=== PATIENT | male | born 1965 | race African-American/Black ===

== ENCOUNTER 2017-03-01 19:14 | Inpatient (IN) | payer MEDICAID ==
[~2017-03-01] VITALS: Ht 172.7 cm; Wt 72.1 kg
[2017-03-01] MEDS ORDERED: NALOXONE HCL 0.4 MG/ML 1ML VIAL IV PRN (19:30)
[2017-03-01] MEDS ORDERED: SODIUM CHLORIDE 0.9% 1,000 ML IV ONE ×2 (19:30→22:31)
[2017-03-01] MEDS ORDERED: LORAZEPAM 2MG/ML CPJ IV STA ×2 (19:30→22:31)
[2017-03-01] MEDS ORDERED: DIPHENHYDRAMINE 50MG/ML VIAL IM STA (19:35)
[2017-03-01] MEDS ORDERED: LORAZEPAM 2MG/ML CPJ IM ONE (19:45)
[2017-03-01 20:13] LABS: HEMATOCRIT. 40.9 % (42.0-52.0); HEMOGLOBIN. 13.5 g/dL (14.0-18.0); MEAN CORPUSCULAR HEMOGLOBIN 31.1 pg (28.0-32.0); MEAN CORPUSCULAR VOLUME 94.3 fL (80.0-94.0); MEAN PLATELET VOLUME 9.7 fl (7.4-10.4); PLATELET 180 x1000/uL (130-400); RED BLOOD CELL COUNT 4.34 mill/uL (4.7-6.1); RED CELL DISTRIBUTION WIDTH 14.1 % (11.6-14.6); WHITE BLOOD COUNT 35.2 x1000/uL (4.5-11.0)
[2017-03-01 20:14] LABS: DIFFERENTIAL COMMENT 1
[2017-03-01 20:17] LABS: INR 1.7; PROTHROMBIN TIME 17.8 sec
[2017-03-01 20:22] LABS: AMMONIA 54 uMol/L (<32); INDEX HEMOLYSI 1 (1-3)
[2017-03-01 20:24] LABS: ALANINE AMINOTRANSFERASE 23 IU/L (13-61); ALBUMIN 2.4 g/dL (3.4-5.0); ANION GAP 27; CALCIUM 9.1 mg/dL (8.5-10.1); CARBON DIOXIDE 14 mEq/L (21-32); CHLORIDE 95 mEq/L (98-107); ETHANOL BLOOD < 10 mg/dL; INDEX HEMOLYSI 2 (1-3); INDEX ICTERIC 2 (1-4); INDEX LIPEMIC 1 (1-3); LIPASE 33 IU/L (73-393); eGFR > 60 mL/min (>60)
[2017-03-01 20:27] LABS: CREATINE KINASE 86 IU/L (39-308); TROPONIN I 0.04 ng/mL (0.00-0.04)
[2017-03-01] MEDS ORDERED: HALOPERIDOL LACTATE 5MG/ML VIAL IM ONE (20:30)
[2017-03-01] MEDS ORDERED: DEXTROSE 50% WATER 50ML SYRINGE IV ONE (20:30)
[2017-03-01 20:33] LABS: THYROID STIMULATING HORMONE 0.62 uIU/mL (0.36-3.74); UREA NITROGEN BLOOD 4 mg/dL (7-21)
[2017-03-01 20:56] LABS: CLARITY URINE CLEAR (CLEAR); COLOR URINE ORANGE (YELLOW); GLUCOSE URINE NEGATIVE (NEGATIVE); KETONES URINE TRACE (NEGATIVE); LEUKOCYTE ESTERASE URINE 1+ (NEGATIVE); NITRITE URINE POSITIVE (NEGATIVE); OCCULT BLOOD URINE 1+ (NEGATIVE); PH URINE 5.5 (4.5-8.0); PROTEIN URINE 2+ (NEGATIVE); SPECIFIC GRAVITY URINE 1.023 (1.005-1.030)
[2017-03-01 20:59] LABS: PLATELET ESTIMATE NORMAL
[2017-03-01 21:06] LABS: *AMPHETAMINES SCREEN URINE NEGATIVE (NEGATIVE); *BARBITURATES SCREEN URINE NEGATIVE (NEGATIVE); *BENZODIAZEPINES SCREEN URINE NEGATIVE (NEGATIVE); *COCAINE SCREEN URINE NEGATIVE (NEGATIVE); CANNABINOID URINE SCREEN PRESUMTIVE POSITIVE (NEGATIVE); ECSTASY MDMA SCREEN URINE NEGATIVE (NEGATIVE); METHADONE URINE SCREEN NEGATIVE (NEGATIVE); OPIATES URINE SCREEN NEGATIVE (NEGATIVE); PHENCYCLIDINE URINE SCREEN NEGATIVE (NEGATIVE)
[2017-03-01] MEDS ORDERED: SODIUM CHLORIDE 0.9% 1000ML BAG (SEPSIS BOLUS) IV ONE ×2 (21:15→23:45)
[2017-03-01 22:22] LABS: MUCUS URINE 1+ /lpf (NONE/TRACE); SQUAMOUS EPITHELIAL CELL URINE FEW /lpf (RARE/1+)
[2017-03-01 22:24] LABS: BACTERIA URINE TRACE; HYALINE CASTS URINE 0-5 /lpf
[2017-03-01] MEDS ORDERED: MIDAZOLAM HCL 2 MG/2 ML VIAL IV ONE (22:45)
[2017-03-01] MEDS ORDERED: ETOMIDATE 2MG/ML 10ML VIAL IV ONE (22:45)
[2017-03-01] MEDS ORDERED: MIDAZOLAM HCL 50 MG in DEXTROSE 5% WATER 40 ML IV ONE (22:45)
[2017-03-01] MEDS ORDERED: SUCCINYLCHOLINE CHLORIDE 200MG/10ML VIAL IV ONE (22:45)
[2017-03-01] MEDS ORDERED: LEVOFLOXACIN 750MG PREMIX 150 ML IV ONE (23:45)
[2017-03-01] MEDS ORDERED: METRONIDAZOLE 500 MG PREMIX 100 ML IV ONE (23:45)
[2017-03-01 23:55] LABS: BG BASE EXCESS -13.5 mmol/L (-2.0-2.0); BG CARBOXYHEMOGLOBIN 0.3 % (0.5-1.5); BG DEOXYHEMOGLOBIN 1.3 % (0.0-5.0); BG FRACTION INSPIRED OXYGEN 50; BG HCO3 ACT 9.8 mmol/L (22.0-26.0); BG METHEMOGLOBIN 0.4 % (0.0-1.5); BG OXYGEN SATURATION 98.7 % (92.0-98.5); BG PCO2 18.5 mmHg (35.0-45.0); BG PH 7.343 (7.350-7.450); BG PO2 157.2 mmHg (75.0-100.0); BG SAMPLE SITE RIGHT BRACHIAL; BG TIDAL VOLUME(mL) 450 mL; BG TOTAL HEMOGLOBIN 12.6 g/dL (12.0-18.0); BG VENT MODE VENT - A/C; BG VENT RATE 14 set
[2017-03-02] VITALS (66 sets, daily range): BP systolic 73–127; BP diastolic 29–82
[2017-03-02] MEDS ORDERED: KCL 20MEQ/100ML PREMIX 100 ML IV ONE (00:30)
[2017-03-02] MEDS ORDERED: PANTOPRAZOLE SODIUM 40 MG/VIAL IV STA (00:54)
[2017-03-02] MEDS ORDERED: OCTREOTIDE ACETATE 50 MCG/ML 1ML IV STA (00:54)
[2017-03-02] MEDS ORDERED: ETOMIDATE 2MG/ML 10ML VIAL IV ONE (01:00)
[2017-03-02] MEDS ORDERED: SUCCINYLCHOLINE CHLORIDE 200MG/10ML VIAL IV ONE (01:00)
[2017-03-02] MEDS ORDERED: ACETAMINOPHEN 650MG SUPP PR ONE (01:00)
[2017-03-02] MEDS ORDERED: SODIUM CHLORIDE 0.9% 1000ML BAG (SEPSIS BOLUS) IV ONE (01:00)
[2017-03-02] MEDS ORDERED: MIDAZOLAM HCL 50 MG in DEXTROSE 5% WATER 40 ML IV ONE (02:00)
[2017-03-02] MEDS ORDERED: VANCOMYCIN 1 G PREMIX 200 ML IV SCH (02:00)
[2017-03-02 02:57] LABS: CHLORIDE 109 mEq/L (98-107); INDEX HEMOLYSI 1 (1-3); INDEX ICTERIC 2 (1-4); INDEX LIPEMIC 1 (1-3)
[2017-03-02 03:04] LABS: ANION GAP 20; CARBON DIOXIDE 12 mEq/L (21-32); eGFR > 60 mL/min (>60)
[2017-03-02 03:09] LABS: UREA NITROGEN BLOOD 3 mg/dL (7-21)
[2017-03-02] MEDS ORDERED: POTASSIUM CHLORIDE INJ 40 MEQ in DEXT 5% WATER 500 ML IV NR (04:15)
[2017-03-02] MEDS ORDERED: DEXT 5%/0.9% NACL 1,000 ML IV SCH (04:15)
[2017-03-02 06:31] LABS: HEMATOCRIT. 32.4 % (42.0-52.0); HEMOGLOBIN. 10.9 g/dL (14.0-18.0); MEAN CORPUSCULAR HEMOGLOBIN 31.7 pg (28.0-32.0); MEAN CORPUSCULAR HGB CONC 33.6 g/dL (31.0-37.0); MEAN CORPUSCULAR VOLUME 94.3 fL (80.0-94.0); MEAN PLATELET VOLUME 9.6 fl (7.4-10.4); PLATELET 67 x1000/uL (130-400); RED BLOOD CELL COUNT 3.44 mill/uL (4.7-6.1); RED CELL DISTRIBUTION WIDTH 13.9 % (11.6-14.6); WHITE BLOOD COUNT 17.8 x1000/uL (4.5-11.0)
[2017-03-02 06:35] LABS: DIFFERENTIAL COMMENT 1
[2017-03-02 06:42] LABS: ALANINE AMINOTRANSFERASE 34 IU/L (13-61); ALBUMIN 1.5 g/dL (3.4-5.0); ANION GAP 18; CALCIUM 7.1 mg/dL (8.5-10.1); CARBON DIOXIDE 13 mEq/L (21-32); CHLORIDE 111 mEq/L (98-107); INDEX HEMOLYSI 1 (1-3); INDEX ICTERIC 2 (1-4); INDEX LIPEMIC 1 (1-3); eGFR > 60 mL/min (>60)
[2017-03-02 06:45] LABS: UREA NITROGEN BLOOD 4 mg/dL (7-21)
[2017-03-02 06:51] LABS: PLATELET ESTIMATE DECREASED
[2017-03-02 07:55] LABS: LACTIC ACID 5.6 mmol/L (0.4-2.0)
[2017-03-02] MEDS ORDERED: CLONIDINE 0.1MG TABLET PO PRN (08:45)
[2017-03-02] MEDS ORDERED: MAGNESIUM/ALUMINUM HYDROXIDE/SIMETHICONE 30ML UDC PO PRN (08:45)
[2017-03-02] MEDS ORDERED: ACETAMINOPHEN 650MG SUPP PR PRN (08:45)
[2017-03-02] MEDS ORDERED: ONDANSETRON HCL 4MG/2ML VIAL IV PRN (08:45)
[2017-03-02] MEDS ORDERED: ACETAMINOPHEN 650MG/20.3ML UDC GT PRN (08:45)
[2017-03-02] MEDS ORDERED: HYDROCODONE/ACETAMINOPHEN 5/325MG TABLET PO PRN (08:45)
[2017-03-02] MEDS ORDERED: ACETAMINOPHEN 325MG TABLET PO PRN (08:45)
[2017-03-02] MEDS ORDERED: ENOXAPARIN 40MG/0.4ML SYR SUBCUT SCH (08:45)
[2017-03-02] MEDS ORDERED: NA PHOS,M-B/NA PHOS,DI-BA ENEMA 118ML PR PRN (08:45)
[2017-03-02] MEDS ORDERED: DIPHENHYDRAMINE 50MG/ML VIAL IV PRN (08:45)
[2017-03-02] MEDS ORDERED: GUAIFENESIN 200MG/10ML SUGAR FREE UDC PO PRN (08:45)
[2017-03-02] MEDS ORDERED: POTASSIUM CHLORIDE INJ 40 MEQ in DEXT 5% WATER 500 ML IV ONE (09:00)
[2017-03-02] MEDS ORDERED: DOCUSATE SODIUM 100MG CAPSULE PO PRN (09:00)
[2017-03-02] MEDS ORDERED: IPRATROPIUM/ALBUTEROL 0.5-3(2.5)MG/3ML NEB INH PRN (09:00)
[2017-03-02] MEDS ORDERED: NOREPINEPHRINE 32 MG in DEXT 5% WATER 468 ML IV PRN (09:30)
[2017-03-02] MEDS ORDERED: NOREPINEPHRINE 16MG in DEXT 5% WATER 250ML (QUADRUPLE CONC) IV PRN (09:30)
[2017-03-02] MEDS ORDERED: SODIUM BICARBONATE 50 MEQ in DEXTROSE 5% WATER 1,000 ML IV SCH ×2 (09:30→11:00)
[2017-03-02 09:37] LABS: BG BASE EXCESS -11.2 mmol/L (-2.0-2.0); BG CARBOXYHEMOGLOBIN 0.1 % (0.5-1.5); BG FRACTION INSPIRED OXYGEN 50; BG HCO3 ACT 10.7 mmol/L (22.0-26.0); BG METHEMOGLOBIN 0.3 % (0.0-1.5); BG OXYHEMOGLOBIN 97.6 % (94.0-97.0); BG PCO2 16.7 mmHg (35.0-45.0); BG PH 7.425 (7.350-7.450); BG PO2 110.6 mmHg (75.0-100.0); BG SAMPLE SITE RIGHT BRACHIAL; BG TIDAL VOLUME(mL) 450 mL; BG TOTAL HEMOGLOBIN 12.1 g/dL (12.0-18.0); BG VENT MODE VENT - A/C; BG VENT RATE 14 set
[2017-03-02] MEDS ORDERED: PIPERACILLIN/TAZ 3.375G PREMIX 50 ML IV SCH (10:00)
[2017-03-02] MEDS ORDERED: PANTOPRAZOLE 80 MG in SODIUM CHLORIDE 0.9% 100 ML IV SCH (10:00)
[2017-03-02] MEDS: METHYLPREDNISOLONE SOD SUCC 125 MG/2 ML VIAL IV SCH ×2 (10:06→17:08)
[2017-03-02] MEDS: PANTOPRAZOLE 80 MG in SODIUM CHLORIDE 0.9% 100 ML IV SCH ×2 (10:06→20:44)
[2017-03-02] MEDS: PIPERACILLIN/TAZ 3.375G PREMIX 50 ML IV SCH ×2 (10:07→17:09)
[2017-03-02] MEDS ORDERED: SODIUM BICARBONATE 8.4% 1 MEQ/ML 50ML SYR IV NR (10:22)
[2017-03-02] MEDS ORDERED: VANCOMYCIN 750 MG PREMIX 150 ML IV SCH (10:30)
[2017-03-02] MEDS: PROPOFOL 10MG/ML 100ML 100 ML IV PRN ×2 (12:20→17:51)
[2017-03-02] MEDS: VANCOMYCIN 750 MG PREMIX 150 ML IV SCH ×2 (12:26→17:51)
[2017-03-02] MEDS ORDERED: SODIUM CHLORIDE 0.9% INJ 3ML FLUSH IVF SCH (14:00)
[2017-03-02 14:23] LABS: BG BASE EXCESS -3.7 mmol/L (-2.0-2.0); BG CARBOXYHEMOGLOBIN 0.1 % (0.5-1.5); BG DEOXYHEMOGLOBIN 0.8 % (0.0-5.0); BG FRACTION INSPIRED OXYGEN 50; BG HCO3 ACT 16.9 mmol/L (22.0-26.0); BG METHEMOGLOBIN 0.2 % (0.0-1.5); BG OXYGEN SATURATION 99.2 % (92.0-98.5); BG OXYHEMOGLOBIN 98.9 % (94.0-97.0); BG PCO2 20.7 mmHg (35.0-45.0); BG PH 7.529 (7.350-7.450); BG PO2 193.7 mmHg (75.0-100.0); BG SAMPLE SITE RIGHT RADIAL; BG TIDAL VOLUME(mL) 500 mL; BG TOTAL HEMOGLOBIN 12.9 g/dL (12.0-18.0); BG VENT MODE VENT - A/C; BG VENT RATE 20 set
[2017-03-02] MEDS ORDERED: SODIUM BICARBONATE 100 MEQ in SODIUM CHLORIDE 0.45% 1,000 ML IV SCH (14:30)
[2017-03-02] MEDS: SODIUM CHLORIDE 0.45% 1,000 ML IV SCH (15:51)
[2017-03-02] MEDS: NOREPINEPHRINE 16 MG in SODIUM CHLORIDE 0.9% 234 ML IV PRN (15:52)
[2017-03-02 16:03] LABS: HEMATOCRIT 38.2 % (42.0-52.0); HEMOGLOBIN 12.9 g/dL (14.0-18.0)
[2017-03-02 16:27] LABS: *AMPHETAMINES SCREEN URINE NEGATIVE (NEGATIVE); *BARBITURATES SCREEN URINE NEGATIVE (NEGATIVE); *BENZODIAZEPINES SCREEN URINE PRESUMTIVE POSITIVE (NEGATIVE); *COCAINE SCREEN URINE NEGATIVE (NEGATIVE); CANNABINOID URINE SCREEN PRESUMTIVE POSITIVE (NEGATIVE); ECSTASY MDMA SCREEN URINE NEGATIVE (NEGATIVE); METHADONE URINE SCREEN NEGATIVE (NEGATIVE); OPIATES URINE SCREEN PRESUMTIVE POSITIVE (NEGATIVE); PHENCYCLIDINE URINE SCREEN NEGATIVE (NEGATIVE)
[2017-03-02 19:08] LABS: HEMATOCRIT 39.2 % (42.0-52.0); HEMOGLOBIN 13.2 g/dL (14.0-18.0)
[2017-03-03] VITALS (95 sets, daily range): BP systolic 83–138; BP diastolic 20–85
[2017-03-03] MEDS: PROPOFOL 10MG/ML 100ML 100 ML IV PRN ×2 (00:20→08:36)
[2017-03-03 01:31] LABS: HEMATOCRIT 39.8 % (42.0-52.0); HEMOGLOBIN 13.3 g/dL (14.0-18.0)
[2017-03-03] MEDS: VANCOMYCIN 750 MG PREMIX 150 ML IV SCH ×3 (02:01→17:47)
[2017-03-03] MEDS: PIPERACILLIN/TAZ 3.375G PREMIX 50 ML IV SCH ×2 (02:01→09:18)
[2017-03-03] MEDS: METHYLPREDNISOLONE SOD SUCC 125 MG/2 ML VIAL IV SCH ×2 (02:20→09:18)
[2017-03-03 05:22] LABS: HEMATOCRIT 38.2 % (42.0-52.0); HEMOGLOBIN 12.7 g/dL (14.0-18.0)
[2017-03-03] MEDS: PANTOPRAZOLE 80 MG in SODIUM CHLORIDE 0.9% 100 ML IV SCH ×2 (05:46→17:47)
[2017-03-03] MEDS: SODIUM CHLORIDE 0.45% 1,000 ML IV SCH (08:14)
[2017-03-03] MEDS: NOREPINEPHRINE 16 MG in SODIUM CHLORIDE 0.9% 234 ML IV PRN (08:24)
[2017-03-03 09:02] LABS: BG BASE EXCESS -5.1 mmol/L (-2.0-2.0); BG CARBOXYHEMOGLOBIN 0.2 % (0.5-1.5); BG DEOXYHEMOGLOBIN 0.8 % (0.0-5.0); BG FRACTION INSPIRED OXYGEN 40; BG HCO3 ACT 15.2 mmol/L (22.0-26.0); BG METHEMOGLOBIN 0.3 % (0.0-1.5); BG OXYGEN SATURATION 99.2 % (92.0-98.5); BG OXYHEMOGLOBIN 98.7 % (94.0-97.0); BG PCO2 18.6 mmHg (35.0-45.0); BG PO2 163.9 mmHg (75.0-100.0); BG SAMPLE SITE RIGHT RADIAL; BG TIDAL VOLUME(mL) 550 mL; BG TOTAL HEMOGLOBIN 12.7 g/dL (12.0-18.0); BG VENT MODE VENT - A/C; BG VENT RATE 16 set
[2017-03-03 09:26] LABS: BASOPHILS % 0.3 % (0.0-2.0); EOSINOPHILS % 2.8 % (0.0-5.0); HEMATOCRIT. 34.3 % (42.0-52.0); HEMOGLOBIN. 11.5 g/dL (14.0-18.0); LYMPHOCYTES % 7.6 % (20.0-50.0); MEAN CORPUSCULAR HGB CONC 33.4 g/dL (31.0-37.0); MEAN PLATELET VOLUME 11.1 fl (7.4-10.4); MONOCYTES % 5.4 % (2.0-8.0); NEUTROPHILS % 83.9 % (40.0-76.0); RED BLOOD CELL COUNT 3.69 mill/uL (4.7-6.1); RED CELL DISTRIBUTION WIDTH 13.9 % (11.6-14.6); WHITE BLOOD COUNT 21.2 x1000/uL (4.5-11.0)
[2017-03-03 09:32] LABS: ADD RBC MORPHOLOGY YES; ALANINE AMINOTRANSFERASE 94 IU/L (13-61); ALBUMIN 1.2 g/dL (3.4-5.0); ANION GAP 19; CALCIUM 7.1 mg/dL (8.5-10.1); CARBON DIOXIDE 13 mEq/L (21-32); CHLORIDE 107 mEq/L (98-107); DIFFERENTIAL COMMENT 1; INDEX HEMOLYSI 2 (1-3); INDEX ICTERIC 2 (1-4); INDEX LIPEMIC 1 (1-3); PLATELET 40 x1000/uL (130-400); UREA NITROGEN BLOOD 13 mg/dL (7-21); eGFR > 60 mL/min (>60)
[2017-03-03 09:52] LABS: LACTIC ACID 5.7 mmol/L (0.4-2.0)
[2017-03-03] MEDS ORDERED: IOHEXOL-350 100 ML BOTTLE ONE (11:57)
[2017-03-03] MEDS ORDERED: SODIUM CHLORIDE 0.9% 10ML VIAL ONE (11:57)
[2017-03-03] MEDS ORDERED: POTASSIUM CHLORIDE 20MEQ TABLET SR PO NR (12:15)
[2017-03-03 12:27] LABS: HEMATOCRIT 35.2 % (42.0-52.0); HEMOGLOBIN 11.7 g/dL (14.0-18.0)
[2017-03-03 12:32] LABS: PLATELET ESTIMATE MARKEDLY DECREASED
[2017-03-03 12:58] LABS: AMMONIA 67 uMol/L (<32); INDEX HEMOLYSI 2 (1-3)
[2017-03-03] MEDS ORDERED: POTASSIUM CHLORIDE INJ 40 MEQ in DEXT 5% WATER 250 ML IV ONE (13:30)
[2017-03-03] MEDS ORDERED: POTASSIUM CHLORIDE INJ 40 MEQ in DEXT 5% WATER 250 ML IV NR (13:30)
[2017-03-03] MEDS ORDERED: KCL 20MEQ/100ML PREMIX 100 ML IV NR (13:30)
[2017-03-03] MEDS ORDERED: MEROPENEM PER PHARMACY XX SCH (13:45)
[2017-03-03] MEDS: DEXT 5%/0.45% NACL KCL 10MEQ/L 1,000 ML IV SCH (14:07)
[2017-03-03] MEDS: LACTULOSE 300 ML in WATER FOR INJECTION,STERILE 700 ML PR SCH (15:58)
[2017-03-03] MEDS: MEROPENEM 1,000 MG in SODIUM CHLORIDE 0.9% 50 ML IV SCH (15:59)
[2017-03-03] MEDS: IPRATROPIUM/ALBUTEROL 0.5-3(2.5)MG/3ML NEB HHN SCH ×2 (16:55→20:33)
[2017-03-03] MEDS: METHYLPREDNISOLONE SOD SUCC 40 MG/ML VIAL IV SCH (17:47)
[2017-03-03 19:20] LABS: HEMATOCRIT 31.9 % (42.0-52.0); HEMOGLOBIN 10.4 g/dL (14.0-18.0)
[2017-03-03] MEDS: BUDESONIDE 0.5MG/2ML NEB HHN SCH (20:33)
[2017-03-04] VITALS (85 sets, daily range): BP systolic 96–126; BP diastolic 54–84
[2017-03-04] MEDS: MEROPENEM 1,000 MG in SODIUM CHLORIDE 0.9% 50 ML IV SCH ×3 (00:24→16:58)
[2017-03-04] MEDS: IPRATROPIUM/ALBUTEROL 0.5-3(2.5)MG/3ML NEB HHN SCH ×6 (01:09→20:36)
[2017-03-04] MEDS: FENTANYL CITRATE/PF 500 MCG in SODIUM CHLORIDE 0.9% 40 ML IV PRN ×3 (01:36→18:05)
[2017-03-04] MEDS: PANTOPRAZOLE 80 MG in SODIUM CHLORIDE 0.9% 100 ML IV SCH ×3 (01:36→21:38)
[2017-03-04] MEDS: VANCOMYCIN 750 MG PREMIX 150 ML IV SCH ×2 (01:36→11:03)
[2017-03-04] MEDS: DEXT 5%/0.45% NACL KCL 10MEQ/L 1,000 ML IV SCH ×2 (03:45→21:39)
[2017-03-04 05:26] LABS: HEMATOCRIT. 34.1 % (42.0-52.0); HEMOGLOBIN. 11.5 g/dL (14.0-18.0); MEAN CORPUSCULAR HEMOGLOBIN 31.2 pg (28.0-32.0); MEAN CORPUSCULAR HGB CONC 33.7 g/dL (31.0-37.0); MEAN CORPUSCULAR VOLUME 92.4 fL (80.0-94.0); MEAN PLATELET VOLUME 10.6 fl (7.4-10.4); RED BLOOD CELL COUNT 3.69 mill/uL (4.7-6.1); WHITE BLOOD COUNT 22.6 x1000/uL (4.5-11.0)
[2017-03-04 05:38] LABS: AMMONIA 98 uMol/L (<32); INDEX HEMOLYSI 2 (1-3)
[2017-03-04 05:39] LABS: DIFFERENTIAL COMMENT 1; PLATELET 14 x1000/uL (130-400)
[2017-03-04 05:57] LABS: CHLORIDE 107 mEq/L (98-107); INDEX ICTERIC 3 (1-4); INDEX LIPEMIC 1 (1-3)
[2017-03-04 06:15] LABS: ANION GAP 18; CALCIUM 6.4 mg/dL (8.5-10.1); CARBON DIOXIDE 13 mEq/L (21-32); MAGNESIUM 1.3 mg/dL (1.8-2.4); UREA NITROGEN BLOOD 15 mg/dL (7-21); eGFR > 60 mL/min (>60)
[2017-03-04 06:26] LABS: INDEX HEMOLYSI 4 (1-3); PHOSPHORUS 0.7 mg/dL (2.5-4.9)
[2017-03-04] MEDS: BUDESONIDE 0.5MG/2ML NEB HHN SCH ×2 (08:56→20:36)
[2017-03-04] MEDS ORDERED: MAGNESIUM 4 G PREMIX 100 ML IV SCH (09:00)
[2017-03-04] MEDS ORDERED: SODIUM PHOS,M-BASIC-D-BASIC 20 MM in DEXT 5% WATER 243.3333 ML IV NR (09:00)
[2017-03-04] MEDS: METHYLPREDNISOLONE SOD SUCC 40 MG/ML VIAL IV SCH (09:35)
[2017-03-04 10:25] LABS: PLATELET ESTIMATE MARKEDLY DECREASED
[2017-03-04] MEDS: LACTULOSE 300 ML in WATER FOR INJECTION,STERILE 700 ML PR SCH (12:28)
[2017-03-04 15:49] LABS: HEMATOCRIT. 32.6 % (42.0-52.0); HEMOGLOBIN. 10.8 g/dL (14.0-18.0); MEAN CORPUSCULAR HEMOGLOBIN 31.1 pg (28.0-32.0); MEAN CORPUSCULAR HGB CONC 33.2 g/dL (31.0-37.0); MEAN CORPUSCULAR VOLUME 93.6 fL (80.0-94.0); RED BLOOD CELL COUNT 3.48 mill/uL (4.7-6.1); WHITE BLOOD COUNT 18.3 x1000/uL (4.5-11.0)
[2017-03-04 15:54] LABS: DIFFERENTIAL COMMENT 1; PLATELET 14 x1000/uL (130-400)
[2017-03-04 16:34] LABS: NUCLEATED RED BLOOD CELLS 2 /100 WBC; PLATELET ESTIMATE MARKEDLY DECREASED
[2017-03-04] MEDS: VANCOMYCIN 1 G PREMIX 200 ML IV SCH (21:38)
[2017-03-05] VITALS (42 sets, daily range): BP systolic 105–134; BP diastolic 63–90
[2017-03-05] MEDS: MEROPENEM 1,000 MG in SODIUM CHLORIDE 0.9% 50 ML IV SCH ×3 (00:02→15:35)
[2017-03-05] MEDS: IPRATROPIUM/ALBUTEROL 0.5-3(2.5)MG/3ML NEB HHN SCH ×6 (00:14→20:26)
[2017-03-05] MEDS: PANTOPRAZOLE 80 MG in SODIUM CHLORIDE 0.9% 100 ML IV SCH (08:31)
[2017-03-05] MEDS: METHYLPREDNISOLONE SOD SUCC 40 MG/ML VIAL IV SCH (08:33)
[2017-03-05] MEDS: VANCOMYCIN 1 G PREMIX 200 ML IV SCH ×2 (08:33→21:43)
[2017-03-05] MEDS: BUDESONIDE 0.5MG/2ML NEB HHN SCH ×2 (09:26→20:27)
[2017-03-05 10:47] LABS: BG BASE EXCESS -4.6 mmol/L (-2.0-2.0); BG CARBOXYHEMOGLOBIN 0.3 % (0.5-1.5); BG DEOXYHEMOGLOBIN 5.9 % (0.0-5.0); BG FRACTION INSPIRED OXYGEN 40; BG HCO3 ACT 18.1 mmol/L (22.0-26.0); BG METHEMOGLOBIN 0.3 % (0.0-1.5); BG OXYGEN SATURATION 94.1 % (92.0-98.5); BG OXYHEMOGLOBIN 93.5 % (94.0-97.0); BG PCO2 26.3 mmHg (35.0-45.0); BG PH 7.456 (7.350-7.450); BG PO2 72.3 mmHg (75.0-100.0); BG SAMPLE SITE RIGHT RADIAL; BG TIDAL VOLUME(mL) 550 mL; BG TOTAL HEMOGLOBIN 10.6 g/dL (12.0-18.0); BG VENT MODE VENT - A/C; BG VENT RATE 16 set
[2017-03-05 10:51] LABS: HEMATOCRIT. 29.6 % (42.0-52.0); MEAN CORPUSCULAR HGB CONC 33.7 g/dL (31.0-37.0); MEAN CORPUSCULAR VOLUME 92.1 fL (80.0-94.0); MEAN PLATELET VOLUME 8.9 fl (7.4-10.4); RED BLOOD CELL COUNT 3.21 mill/uL (4.7-6.1); RED CELL DISTRIBUTION WIDTH 14.1 % (11.6-14.6); WHITE BLOOD COUNT 17.2 x1000/uL (4.5-11.0)
[2017-03-05 10:57] LABS: ALANINE AMINOTRANSFERASE 59 IU/L (13-61); ALBUMIN 1.4 g/dL (3.4-5.0); ANION GAP 12; CALCIUM 7.1 mg/dL (8.5-10.1); CARBON DIOXIDE 19 mEq/L (21-32); CHLORIDE 107 mEq/L (98-107); INDEX HEMOLYSI 1 (1-3); INDEX ICTERIC 3 (1-4); INDEX LIPEMIC 1 (1-3); UREA NITROGEN BLOOD 13 mg/dL (7-21); eGFR > 60 mL/min (>60)
[2017-03-05 10:59] LABS: DIFFERENTIAL COMMENT 1; PLATELET 18 x1000/uL (130-400)
[2017-03-05 11:19] LABS: LACTIC ACID 2.2 mmol/L (0.4-2.0)
[2017-03-05 11:31] LABS: PLATELET ESTIMATE MARKEDLY DECREASED
[2017-03-05] MEDS: FENTANYL CITRATE/PF 500 MCG in SODIUM CHLORIDE 0.9% 40 ML IV PRN (11:39)
[2017-03-05] MEDS: LACTULOSE 300 ML in WATER FOR INJECTION,STERILE 700 ML PR SCH (11:42)
[2017-03-05 12:49] LABS: MAGNESIUM 2.3 mg/dL (1.8-2.4)
[2017-03-05 12:55] LABS: PHOSPHORUS 0.9 mg/dL (2.5-4.9)
[2017-03-05 13:19] LABS: INDEX HEMOLYSI 2 (1-3); INDEX ICTERIC 3 (1-4); INDEX LIPEMIC 1 (1-3); IRON 123 ug/dL (50-175); TOTAL IRON BINDING CAPACITY 158 ug/dL (250-450)
[2017-03-05] MEDS ORDERED: POTASSIUM CHLORIDE INJ 40 MEQ in DEXT 5% WATER 250 ML IV NR (13:30)
[2017-03-05 13:37] LABS: INDEX HEMOLYSI 4 (1-3)
[2017-03-05 14:01] LABS: AMMONIA 62 uMol/L (<32)
[2017-03-05] MEDS: DEXT 5%/0.45% NACL KCL 10MEQ/L 1,000 ML IV SCH (14:30)
[2017-03-05] MEDS ORDERED: POTASSIUM PHOS,M-BASIC-D-BASIC 10 MMOL in DEXT 5% WATER 246.6667 ML IV NR (16:30)
[2017-03-06] VITALS (57 sets, daily range): BP systolic 112–147; BP diastolic 65–94
[2017-03-06] MEDS: IPRATROPIUM/ALBUTEROL 0.5-3(2.5)MG/3ML NEB HHN SCH ×6 (00:16→20:10)
[2017-03-06] MEDS: MEROPENEM 1,000 MG in SODIUM CHLORIDE 0.9% 50 ML IV SCH ×3 (00:22→16:47)
[2017-03-06 05:08] LABS: HEMATOCRIT. 29.6 % (42.0-52.0); HEMOGLOBIN. 10.1 g/dL (14.0-18.0); MEAN CORPUSCULAR HEMOGLOBIN 31.5 pg (28.0-32.0); MEAN CORPUSCULAR HGB CONC 34.1 g/dL (31.0-37.0); MEAN CORPUSCULAR VOLUME 92.5 fL (80.0-94.0); RED CELL DISTRIBUTION WIDTH 14.3 % (11.6-14.6); WHITE BLOOD COUNT 18.5 x1000/uL (4.5-11.0)
[2017-03-06 05:20] LABS: DIFFERENTIAL COMMENT 1
[2017-03-06 05:48] LABS: CHLORIDE 105 mEq/L (98-107); INDEX HEMOLYSI 2 (1-3); INDEX ICTERIC 3 (1-4); INDEX LIPEMIC 1 (1-3)
[2017-03-06 06:00] LABS: ALBUMIN 1.6 g/dL (3.4-5.0); CARBON DIOXIDE 18 mEq/L (21-32); UREA NITROGEN BLOOD 10 mg/dL (7-21); eGFR > 60 mL/min (>60)
[2017-03-06 06:01] LABS: ALANINE AMINOTRANSFERASE 47 IU/L (13-61); ANION GAP 15; CALCIUM 7.1 mg/dL (8.5-10.1)
[2017-03-06 06:58] LABS: PLATELET ESTIMATE MARKEDLY DECREASED
[2017-03-06 07:02] LABS: MEAN PLATELET VOLUME 7.9 fl (7.4-10.4); PLATELET 37 x1000/uL (130-400)
[2017-03-06] MEDS: BUDESONIDE 0.5MG/2ML NEB HHN SCH (09:07)
[2017-03-06] MEDS: PANTOPRAZOLE SODIUM 40 MG/VIAL IV SCH (09:24)
[2017-03-06] MEDS: METHYLPREDNISOLONE SOD SUCC 40 MG/ML VIAL IV SCH (09:24)
[2017-03-06] MEDS: VANCOMYCIN 1 G PREMIX 200 ML IV SCH ×2 (10:31→20:43)
[2017-03-06] MEDS: DEXT 5%/0.45% NACL KCL 10MEQ/L 1,000 ML IV SCH (10:31)
[2017-03-06] MEDS: LACTULOSE 300 ML in WATER FOR INJECTION,STERILE 700 ML PR SCH (12:19)
[2017-03-06] MEDS ORDERED: POTASSIUM CHLORIDE 20 MEQ/PACKET PO NR (14:00)
[2017-03-06] MEDS: FENTANYL CITRATE/PF 500 MCG in SODIUM CHLORIDE 0.9% 40 ML IV PRN (22:44)
[2017-03-07] VITALS (55 sets, daily range): BP systolic 103–149; BP diastolic 61–97
[2017-03-07] MEDS: IPRATROPIUM/ALBUTEROL 0.5-3(2.5)MG/3ML NEB HHN SCH ×6 (00:12→20:49)
[2017-03-07] MEDS: DEXT 5%/0.45% NACL KCL 10MEQ/L 1,000 ML IV SCH ×2 (02:20→23:28)
[2017-03-07] MEDS: FENTANYL CITRATE/PF 500 MCG in SODIUM CHLORIDE 0.9% 40 ML IV PRN ×2 (04:32→20:20)
[2017-03-07 05:40] LABS: AMMONIA 45 uMol/L (<32); INDEX HEMOLYSI 2 (1-3)
[2017-03-07] MEDS: BUDESONIDE 0.5MG/2ML NEB HHN SCH (08:07)
[2017-03-07] MEDS: MEROPENEM 1,000 MG in SODIUM CHLORIDE 0.9% 50 ML IV SCH ×3 (08:58)
[2017-03-07] MEDS: METHYLPREDNISOLONE SOD SUCC 40 MG/ML VIAL IV SCH (08:58)
[2017-03-07] MEDS: PANTOPRAZOLE SODIUM 40 MG/VIAL IV SCH (08:58)
[2017-03-07] MEDS: VANCOMYCIN 1 G PREMIX 200 ML IV SCH ×2 (08:59→22:29)
[2017-03-07] MEDS: MEROPENEM 1000MG in NORMAL SALINE 100ML IV SCH ×2 (13:00→23:32)
[2017-03-07] MEDS: LACTULOSE 300 ML in WATER FOR INJECTION,STERILE 700 ML PR SCH (13:00)
[2017-03-08] VITALS (23 sets, daily range): BP systolic 76–117; BP diastolic 45–83
[2017-03-08] MEDS: IPRATROPIUM/ALBUTEROL 0.5-3(2.5)MG/3ML NEB HHN SCH ×6 (00:17→19:54)
[2017-03-08 05:01] LABS: AMMONIA < 10 uMol/L (<32); INDEX HEMOLYSI 2 (1-3)
[2017-03-08] MEDS: MEROPENEM 1000MG in NORMAL SALINE 100ML IV SCH ×3 (05:18→22:43)
[2017-03-08] MEDS: METHYLPREDNISOLONE SOD SUCC 40 MG/ML VIAL IV SCH (08:39)
[2017-03-08] MEDS: PANTOPRAZOLE SODIUM 40 MG/VIAL IV SCH (08:40)
[2017-03-08] MEDS: VANCOMYCIN 1 G PREMIX 200 ML IV SCH ×2 (09:28→21:02)
[2017-03-08] MEDS: LACTULOSE 300 ML in WATER FOR INJECTION,STERILE 700 ML PR SCH (09:32)
[2017-03-08] MEDS: FENTANYL CITRATE/PF 500 MCG in SODIUM CHLORIDE 0.9% 40 ML IV PRN ×2 (10:16→18:59)
[2017-03-08] MEDS: DEXT 5%/0.45% NACL KCL 10MEQ/L 1,000 ML IV SCH (12:56)
[2017-03-08] MEDS: METOCLOPRAMIDE HCL 10MG/2ML VIAL IV SCH (23:31)
[2017-03-09] VITALS (65 sets, daily range): BP systolic 88–145; BP diastolic 48–81
[2017-03-09] MEDS: IPRATROPIUM/ALBUTEROL 0.5-3(2.5)MG/3ML NEB HHN SCH ×6 (00:18→23:33)
[2017-03-09] MEDS: FENTANYL CITRATE/PF 500 MCG in SODIUM CHLORIDE 0.9% 40 ML IV PRN ×2 (03:10→11:59)
[2017-03-09 05:13] LABS: AMMONIA 35 uMol/L (<32); INDEX HEMOLYSI 1 (1-3)
[2017-03-09] MEDS: MEROPENEM 1000MG in NORMAL SALINE 100ML IV SCH ×3 (05:17→21:50)
[2017-03-09] MEDS: METOCLOPRAMIDE HCL 10MG/2ML VIAL IV SCH ×4 (05:17→23:15)
[2017-03-09 07:46] LABS: BG BASE EXCESS -5.4 mmol/L (-2.0-2.0); BG CARBOXYHEMOGLOBIN 0.6 % (0.5-1.5); BG DEOXYHEMOGLOBIN 2.6 % (0.0-5.0); BG HCO3 ACT 18.1 mmol/L (22.0-26.0); BG METHEMOGLOBIN 0.3 % (0.0-1.5); BG OXYGEN SATURATION 97.4 % (92.0-98.5); BG OXYHEMOGLOBIN 96.5 % (94.0-97.0); BG PCO2 29.2 mmHg (35.0-45.0); BG PO2 101.9 mmHg (75.0-100.0); BG SAMPLE SITE RIGHT RADIAL; BG TIDAL VOLUME(mL) 550 mL; BG TOTAL HEMOGLOBIN 12.2 g/dL (12.0-18.0); BG VENT MODE VENT - A/C; BG VENT RATE 16 set
[2017-03-09] MEDS: PANTOPRAZOLE SODIUM 40 MG/VIAL IV SCH (08:35)
[2017-03-09] MEDS: LACTULOSE 20G/30ML UDC NG SCH (08:35)
[2017-03-09] MEDS: DEXT 5%/0.45% NACL KCL 10MEQ/L 1,000 ML IV SCH (08:35)
[2017-03-09] MEDS: VANCOMYCIN 1 G PREMIX 200 ML IV SCH ×2 (08:35→20:19)
[2017-03-09 16:06] LABS: BASOPHILS % 0.1 % (0.0-2.0); EOSINOPHILS % 0.4 % (0.0-5.0); HEMATOCRIT. 25.9 % (42.0-52.0); HEMOGLOBIN. 8.8 g/dL (14.0-18.0); LYMPHOCYTES % 8.9 % (20.0-50.0); MEAN CORPUSCULAR HEMOGLOBIN 31.6 pg (28.0-32.0); MEAN CORPUSCULAR HGB CONC 34.1 g/dL (31.0-37.0); MEAN CORPUSCULAR VOLUME 92.4 fL (80.0-94.0); MEAN PLATELET VOLUME 11.2 fl (7.4-10.4); MONOCYTES % 6.5 % (2.0-8.0); NEUTROPHILS % 84.1 % (40.0-76.0); RED CELL DISTRIBUTION WIDTH 14.1 % (11.6-14.6); WHITE BLOOD COUNT 14.9 x1000/uL (4.5-11.0)
[2017-03-09 16:10] LABS: DIFFERENTIAL COMMENT 1
[2017-03-09 16:11] LABS: CHLORIDE 108 mEq/L (98-107)
[2017-03-09 16:17] LABS: ANION GAP 15; CALCIUM 7.3 mg/dL (8.5-10.1); CARBON DIOXIDE 20 mEq/L (21-32); INDEX HEMOLYSI 1 (1-3); INDEX ICTERIC 4 (1-4); INDEX LIPEMIC 1 (1-3); UREA NITROGEN BLOOD 15 mg/dL (7-21); eGFR > 60 mL/min (>60)
[2017-03-10] VITALS (95 sets, daily range): BP systolic 81–158; BP diastolic 45–94
[2017-03-10] MEDS: FENTANYL CITRATE/PF 500 MCG in SODIUM CHLORIDE 0.9% 40 ML IV PRN ×3 (00:08→23:11)
[2017-03-10] MEDS: IPRATROPIUM/ALBUTEROL 0.5-3(2.5)MG/3ML NEB HHN SCH ×4 (03:34→20:06)
[2017-03-10 04:32] LABS: BG BASE EXCESS -4.2 mmol/L (-2.0-2.0); BG CARBOXYHEMOGLOBIN 0.8 % (0.5-1.5); BG DEOXYHEMOGLOBIN 9.4 % (0.0-5.0); BG FRACTION INSPIRED OXYGEN 50; BG HCO3 ACT 19.6 mmol/L (22.0-26.0); BG METHEMOGLOBIN 0.2 % (0.0-1.5); BG OXYGEN SATURATION 90.5 % (92.0-98.5); BG OXYHEMOGLOBIN 89.6 % (94.0-97.0); BG PCO2 31.3 mmHg (35.0-45.0); BG PH 7.415 (7.350-7.450); BG PO2 60.4 mmHg (75.0-100.0); BG SAMPLE SITE LEFT RADIAL; BG TOTAL HEMOGLOBIN 9.5 g/dL (12.0-18.0); BG VENT MODE MASK - VENTI
[2017-03-10] MEDS: MEROPENEM 1000MG in NORMAL SALINE 100ML IV SCH ×3 (05:28→22:14)
[2017-03-10] MEDS: DEXT 5%/0.45% NACL KCL 10MEQ/L 1,000 ML IV SCH ×2 (05:28→12:11)
[2017-03-10] MEDS: METOCLOPRAMIDE HCL 10MG/2ML VIAL IV SCH ×3 (05:28→18:06)
[2017-03-10 06:21] LABS: BG BASE EXCESS -5.3 mmol/L (-2.0-2.0); BG CARBOXYHEMOGLOBIN 0.8 % (0.5-1.5); BG DEOXYHEMOGLOBIN 1.1 % (0.0-5.0); BG FRACTION INSPIRED OXYGEN 100; BG HCO3 ACT 18.5 mmol/L (22.0-26.0); BG METHEMOGLOBIN 0.2 % (0.0-1.5); BG OXYGEN SATURATION 98.9 % (92.0-98.5); BG OXYHEMOGLOBIN 97.9 % (94.0-97.0); BG PCO2 29.5 mmHg (35.0-45.0); BG PH 7.415 (7.350-7.450); BG PO2 194.2 mmHg (75.0-100.0); BG SAMPLE SITE LEFT RADIAL; BG TOTAL HEMOGLOBIN 8.9 g/dL (12.0-18.0); BG VENT MODE MASK - NRB
[2017-03-10] MEDS ORDERED: POTASSIUM CHLORIDE 20 MEQ/PACKET NG NR (08:30)
[2017-03-10] MEDS: PANTOPRAZOLE SODIUM 40 MG/VIAL IV SCH (08:53)
[2017-03-10] MEDS: VANCOMYCIN 1 G PREMIX 200 ML IV SCH ×2 (08:53→21:31)
[2017-03-10] MEDS: LACTULOSE 20G/30ML UDC NG SCH (08:53)
[2017-03-10] MEDS ORDERED: VECURONIUM BROMIDE 10 MG/VIAL IV ONE (11:05)
[2017-03-10] MEDS ORDERED: ETOMIDATE 2MG/ML 10ML VIAL IV ONE (11:05)
[2017-03-10] MEDS ORDERED: STERILE WATER FOR INJECTION 10ML VIAL ONE (11:05)
[2017-03-10 12:12] LABS: BG CARBOXYHEMOGLOBIN 0.9 % (0.5-1.5); BG DEOXYHEMOGLOBIN 7.8 % (0.0-5.0); BG FRACTION INSPIRED OXYGEN 50; BG HCO3 ACT 19.4 mmol/L (22.0-26.0); BG METHEMOGLOBIN 0.1 % (0.0-1.5); BG OXYGEN SATURATION 92.1 % (92.0-98.5); BG OXYHEMOGLOBIN 91.2 % (94.0-97.0); BG PCO2 33.6 mmHg (35.0-45.0); BG PH 7.379 (7.350-7.450); BG PO2 66.2 mmHg (75.0-100.0); BG SAMPLE SITE RIGHT RADIAL; BG TIDAL VOLUME(mL) 550 mL; BG TOTAL HEMOGLOBIN 10.2 g/dL (12.0-18.0); BG VENT MODE VENT - A/C; BG VENT RATE 14 set
[2017-03-10] MEDS ORDERED: MIDAZOLAM HCL 100 MG in DEXT 5% WATER 80 ML IV PRN (13:00)
[2017-03-10 15:12] LABS: PLATELET 17 x1000/uL (130-400)
[2017-03-10] MEDS ORDERED: ACETAMINOPHEN 650MG/20.3ML UDC PO PRN (21:30)
[2017-03-10] MEDS ORDERED: PHENYLEPHRINE 10 MG in DEXT 5% WATER 249 ML IV PRN (22:00)
[2017-03-11] VITALS (109 sets, daily range): BP systolic 29–155; BP diastolic 14–105
[2017-03-11] MEDS ORDERED: PHENYLEPHRINE IV PRN (00:38)
[2017-03-11] MEDS ORDERED: WATER IV PRN (00:38)
[2017-03-11] MEDS ORDERED: DEXT 5% IV PRN (00:38)
[2017-03-11] MEDS: METOCLOPRAMIDE HCL 10MG/2ML VIAL IV SCH ×4 (00:48→18:00)
[2017-03-11] MEDS ORDERED: PHENYLEPHRINE 40 MG in DEXT 5% WATER 500 ML IV PRN ×2 (01:04→01:30)
[2017-03-11] MEDS: NOREPINEPHRINE 16 MG in SODIUM CHLORIDE 0.9% 234 ML IV PRN ×2 (03:37→12:08)
[2017-03-11 04:08] LABS: BG BASE EXCESS -14.9 mmol/L (-2.0-2.0); BG CARBOXYHEMOGLOBIN 1.3 % (0.5-1.5); BG DEOXYHEMOGLOBIN 54.5 % (0.0-5.0); BG FRACTION INSPIRED OXYGEN 100; BG HCO3 ACT 11.8 mmol/L (22.0-26.0); BG METHEMOGLOBIN 0.4 % (0.0-1.5); BG OXYGEN SATURATION 44.6 % (92.0-98.5); BG OXYHEMOGLOBIN 43.8 % (94.0-97.0); BG PH 7.199 (7.350-7.450); BG PO2 34.7 mmHg (75.0-100.0); BG SAMPLE SITE RIGHT RADIAL; BG TIDAL VOLUME(mL) 550 mL; BG TOTAL HEMOGLOBIN 7.4 g/dL (12.0-18.0); BG VENT MODE VENT - A/C; BG VENT RATE 14 set
[2017-03-11] MEDS: IPRATROPIUM/ALBUTEROL 0.5-3(2.5)MG/3ML NEB HHN SCH ×3 (04:08→15:30)
[2017-03-11] MEDS ORDERED: DIPHENHYDRAMINE 50MG/ML VIAL IV ONE (04:30)
[2017-03-11] MEDS ORDERED: SODIUM BICARBONATE 8.4% 1 MEQ/ML 50ML SYR IV ONE ×2 (04:30→20:00)
[2017-03-11 05:29] LABS: AMMONIA 72 uMol/L (<32)
[2017-03-11 05:43] LABS: INR 1.4; PARTIAL THROMBOPLASTIN TIME 33.9 sec (24.0-34.0)
[2017-03-11] MEDS: MEROPENEM 1000MG in NORMAL SALINE 100ML IV SCH ×2 (05:56→14:08)
[2017-03-11] MEDS: PHENYLEPHRINE 80 MG in DEXT 5% WATER 500 ML IV PRN ×2 (06:46→14:08)
[2017-03-11 07:16] LABS: BG BASE EXCESS -8.3 mmol/L (-2.0-2.0); BG CARBOXYHEMOGLOBIN 0.9 % (0.5-1.5); BG DEOXYHEMOGLOBIN 1.5 % (0.0-5.0); BG FRACTION INSPIRED OXYGEN 100; BG METHEMOGLOBIN 0.2 % (0.0-1.5); BG OXYGEN SATURATION 98.5 % (92.0-98.5); BG OXYHEMOGLOBIN 97.4 % (94.0-97.0); BG PCO2 23.6 mmHg (35.0-45.0); BG PO2 128.3 mmHg (75.0-100.0); BG SAMPLE SITE RIGHT RADIAL; BG TIDAL VOLUME(mL) 550 mL; BG TOTAL HEMOGLOBIN 8.3 g/dL (12.0-18.0); BG VENT MODE VENT - A/C; BG VENT RATE 14 set
[2017-03-11 08:39] LABS: ANION GAP 23; CALCIUM 7.5 mg/dL (8.5-10.1); CARBON DIOXIDE 12 mEq/L (21-32); CHLORIDE 105 mEq/L (98-107); INDEX HEMOLYSI 1 (1-3); INDEX ICTERIC 5 (1-4); INDEX LIPEMIC 1 (1-3); UREA NITROGEN BLOOD 13 mg/dL (7-21); eGFR > 60 mL/min (>60)
[2017-03-11] MEDS: VANCOMYCIN 1 G PREMIX 200 ML IV SCH (09:24)
[2017-03-11] MEDS: PANTOPRAZOLE SODIUM 40 MG/VIAL IV SCH (09:24)
[2017-03-11] MEDS: LACTULOSE 20G/30ML UDC NG SCH (09:24)
[2017-03-11 09:49] LABS: HEMOGLOBIN. 7.5 g/dL (14.0-18.0); MEAN CORPUSCULAR HEMOGLOBIN 31.9 pg (28.0-32.0); MEAN CORPUSCULAR HGB CONC 34.1 g/dL (31.0-37.0); MEAN CORPUSCULAR VOLUME 93.7 fL (80.0-94.0); MEAN PLATELET VOLUME 9.9 fl (7.4-10.4); PLATELET 183 x1000/uL (130-400); RED BLOOD CELL COUNT 2.36 mill/uL (4.7-6.1); RED CELL DISTRIBUTION WIDTH 14.3 % (11.6-14.6); WHITE BLOOD COUNT 17.5 x1000/uL (4.5-11.0)
[2017-03-11 09:59] LABS: DIFFERENTIAL COMMENT 1
[2017-03-11 10:00] LABS: HEMATOCRIT. 22.1 % (42.0-52.0)
[2017-03-11 11:18] LABS: NUCLEATED RED BLOOD CELLS 8 /100 WBC
[2017-03-11 11:19] LABS: PLATELET ESTIMATE NORMAL; TARGET CELLS 1+
[2017-03-11] MEDS: FENTANYL CITRATE/PF 500 MCG in SODIUM CHLORIDE 0.9% 40 ML IV PRN (12:10)
[2017-03-11] MEDS ORDERED: EPINEPHRINE 1 MG in SODIUM CHLORIDE 0.9% 249 ML IV PRN (16:15)
[2017-03-11 17:10] LABS: BG CARBOXYHEMOGLOBIN 0.8 % (0.5-1.5); BG DEOXYHEMOGLOBIN 0.2 % (0.0-5.0); BG HCO3 ACT 7.9 mmol/L (22.0-26.0); BG METHEMOGLOBIN 0.3 % (0.0-1.5); BG OXYGEN SATURATION 99.8 % (92.0-98.5); BG OXYHEMOGLOBIN 98.7 % (94.0-97.0); BG PCO2 22.7 mmHg (35.0-45.0); BG PH 7.162 (7.350-7.450); BG PO2 302.3 mmHg (75.0-100.0); BG SAMPLE SITE RIGHT RADIAL; BG TIDAL VOLUME(mL) 600 mL; BG TOTAL HEMOGLOBIN 8.2 g/dL (12.0-18.0); BG VENT MODE VENT - A/C; BG VENT RATE 30 set
[2017-03-11 17:17] LABS: HEMOGLOBIN. 7.2 g/dL (14.0-18.0); MEAN CORPUSCULAR HEMOGLOBIN 31.4 pg (28.0-32.0); MEAN CORPUSCULAR HGB CONC 32.7 g/dL (31.0-37.0); MEAN CORPUSCULAR VOLUME 96.1 fL (80.0-94.0); MEAN PLATELET VOLUME 9.8 fl (7.4-10.4); PLATELET 164 x1000/uL (130-400); RED BLOOD CELL COUNT 2.29 mill/uL (4.7-6.1); RED CELL DISTRIBUTION WIDTH 14.1 % (11.6-14.6); WHITE BLOOD COUNT 20.5 x1000/uL (4.5-11.0)
[2017-03-11 17:21] LABS: CHLORIDE 104 mEq/L (98-107); INDEX HEMOLYSI 1 (1-3); INDEX ICTERIC 5 (1-4); INDEX LIPEMIC 1 (1-3)
[2017-03-11 17:23] LABS: INR 1.8; PROTHROMBIN TIME 19.1 sec
[2017-03-11 17:30] LABS: ALANINE AMINOTRANSFERASE 22 IU/L (13-61); ALBUMIN 1.4 g/dL (3.4-5.0); ANION GAP 30; UREA NITROGEN BLOOD 17 mg/dL (7-21); eGFR > 60 mL/min (>60)
[2017-03-11 17:38] LABS: BILIRUBIN DIRECT 11.7 mg/dL (0.0-0.2)
[2017-03-11 17:39] LABS: CARBON DIOXIDE 9 mEq/L (21-32)
[2017-03-11 17:56] LABS: HEPATITIS B SURFACE ANTIGEN NEGATIVE
[2017-03-11 17:57] LABS: ANISOCYTOSIS 1+; GIANT PLATELETS FEW; NUCLEATED RED BLOOD CELLS 17 /100 WBC; PLATELET ESTIMATE NORMAL
[2017-03-11 17:58] LABS: HYPOCHROMASIA 1+; TARGET CELLS 1+
[2017-03-11 18:01] LABS: DIFFERENTIAL COMMENT 1
[2017-03-11] MEDS ORDERED: DOPAMINE 400MG PREMIX 250 ML IV PRN (18:15)
[2017-03-11 18:18] LABS: BG BASE EXCESS -20.4 mmol/L (-2.0-2.0); BG CARBOXYHEMOGLOBIN 0.4 % (0.5-1.5); BG DEOXYHEMOGLOBIN 1.1 % (0.0-5.0); BG HCO3 ACT 8.6 mmol/L (22.0-26.0); BG METHEMOGLOBIN 0.2 % (0.0-1.5); BG OXYGEN SATURATION 98.9 % (92.0-98.5); BG OXYHEMOGLOBIN 98.3 % (94.0-97.0); BG PCO2 32.1 mmHg (35.0-45.0); BG PH 7.044 (7.350-7.450); BG SAMPLE SITE RIGHT RADIAL; BG TIDAL VOLUME(mL) 600 mL; BG TOTAL HEMOGLOBIN 7.6 g/dL (12.0-18.0); BG VENT MODE VENT - A/C; BG VENT RATE 30 set
[2017-03-11 18:24] LABS: HEPATITIS B CORE AB IGM NEGATIVE
[2017-03-11 18:26] LABS: HEPATITIS A AB IGM NEGATIVE (NEGATIVE)
[2017-03-11 18:44] LABS: HEPATITIS C VIR.AB > 11.00 INDEXVAL (0.00-0.80)
[2017-03-11] MEDS ORDERED: ATROPINE SULFATE 1MG/10ML SYR ONE ×2 (20:00→21:00)
[2017-03-11] MEDS ORDERED: DEXTROSE 50% WATER 50ML SYRINGE IV ONE (20:00)
[2017-03-11] MEDS ORDERED: EPINEPHRINE 0.1MG/ML (1:10,000) 10ML SYR ONE ×2 (20:00→21:00)
[2017-03-11] MEDS ORDERED: SODIUM BICARBONATE 100 MEQ in DEXTROSE 5% WATER 1,000 ML IV SCH (20:00)
[2017-03-11] MEDS ORDERED: DOPAMINE 400MG IN DEXT 5% 250ML PREMIX IV ONE (21:00)
[2017-03-11] MEDS ORDERED: SODIUM BICARBONATE 7.5% 0.9 MEQ/ML 50ML SYR IV ONE (21:00)
== END 2017-03-11 22:20 | disposition expired | DRG 720 ==
LOC: ER 19:32 → MICUSO 03-02 01:53 → EDBD 03-02 01:53
PROVIDERS: ADMIT Family Medicine; ATTEND Family Medicine
PROC: 05H933Z Insertion of Infusion Device into Right Brachial Vein, Percutaneous Approach (ICD-10-PCS; principal; 2017-03-02)
PROC: 5A1955Z Respiratory Ventilation, Greater than 96 Consecutive Hours (ICD-10-PCS; 2017-03-02)
PROC: B54MZZA Ultrasonography of Right Upper Extremity Veins, Guidance (ICD-10-PCS; 2017-03-02)
PROC: 0BH18EZ Insertion of Endotracheal Airway into Trachea, Via Natural or Artificial Opening Endoscopic (ICD-10-PCS; 2017-03-02)
PROC: 30233R1 Transfusion of Nonautologous Platelets into Peripheral Vein, Percutaneous Approach (ICD-10-PCS; 2017-03-04)
PROC: 0BH17EZ Insertion of Endotracheal Airway into Trachea, Via Natural or Artificial Opening (ICD-10-PCS; 2017-03-10)
PROC: 0BP1XDZ Removal of Intraluminal Device from Trachea, External Approach (ICD-10-PCS; 2017-03-10)
PROC: 5A12012 Performance of Cardiac Output, Single, Manual (ICD-10-PCS; 2017-03-11)
DX: A40.9 Streptococcal sepsis, unspecified (principal); J96.01 Acute respiratory failure with hypoxia; R65.21 Severe sepsis with septic shock; J69.0 Pneumonitis due to inhalation of food and vomit; G93.41 Metabolic encephalopathy; E43 Unspecified severe protein-calorie malnutrition; R64 Cachexia; K56.60 Unspecified intestinal obstruction; D69.6 Thrombocytopenia, unspecified; E87.1 Hypo-osmolality and hyponatremia; E87.6 Hypokalemia; D63.8 Anemia in other chronic diseases classified elsewhere; N39.0 Urinary tract infection, site not specified; K74.60 Unspecified cirrhosis of liver; K92.2 Gastrointestinal hemorrhage, unspecified; B95.3 Streptococcus pneumoniae as the cause of diseases classified elsewhere; B96.89 Other specified bacterial agents as the cause of diseases classified elsewhere; D17.0 Benign lipomatous neoplasm of skin and subcutaneous tissue of head, face and neck; E83.39 Other disorders of phosphorus metabolism; E83.42 Hypomagnesemia; G89.29 Other chronic pain; K56.7 Ileus, unspecified; K80.20 Calculus of gallbladder without cholecystitis without obstruction; F41.9 Anxiety disorder, unspecified; Z82.49 Family history of ischemic heart disease and other diseases of the circulatory system; Z68.24 Body mass index [BMI] 24.0-24.9, adult
CPT/HCPCS: 31500; 36415; 36569; 36600; 43753; 51702; 70450; 71010; 71275; 74000; 74176; 76937; 80048; 80053; 80076; 80202; 80305; 81001; 82140; 82375; 82550; 82728; 82805; 82962; 83540; 83550; 83605; 83690; 83735; 84100; 84132; 84443; 84478; 84484; 85014; 85018; 85025; 85049; 85379; 85384; 85610; 85730; 86703; 86705; 86709; 86803; 86850; 86900; 86945; 87040; 87070; 87077; 87086; 87186; 87340; 92950; 93005; 93306; 93970; 94002; 94003; 94640; 96361; 96365; 96366; 96367; 96368; 96375; 96376; 99291; A4216; A6261; C1725; C9113; G0482; J0171; J0330; J0461; J1200; J1265; J1630; J1956; J2060; J2185; J2250; J2354; J2370; J2543; J2704; J2765; J2920; J2930; J3010; J3370; J3475; J3480; J3490; J7030; J7042; J7050; J7060; J7070; J7620; J7626; P9034; Q9967; A4315